=== PATIENT | female | born 1965 | race Two or more races ===

== ENCOUNTER 2018-03-12 15:09 | Observation (INO) | payer BC, OTHER ==
[2018-03-12] MEDS ORDERED: ACETAMINOPHEN 325 MG TABLET PO ONE (15:14)
[2018-03-12] MEDS ORDERED: CIPROFLOXACIN HCL 500 MG TABLET PO ONE (17:22)
[2018-03-12] MEDS ORDERED: OXYCODONE-ACETAMINOPHEN 5-325 MG TABLET PO ONE (17:22)
[2018-03-12] MEDS ORDERED: DIPH/PERTUSS(ACELL)/TETANUS VAC/PF 0.5 ML SYR (>=10YO) IM ONE (17:23)
--- NOTE | 2018-03-12 17:29 | ER Document Report ---
ED Extremity Problem, Lower - General Chief Complaint: Foot Pain Stated Complaint: FOOT PAIN Time Seen by Provider: 03/12/18 16:58 Mode of Arrival: Wheelchair Information source: Patient Notes: 52-year-old female presents to ED for complaint of a puncture wound to the right lateral aspect of the foot just below the fifth metatarsal. She [place] the [place] "[place] me". She said it bled a lot and it is been extremely painful since she got the injury. She states it is throbbing and scale of 5/5 her pain is a 12. TRAVEL OUTSIDE OF THE [place] IN LAST 30 DAYS: No - HPI Location: Foot - Right Occurred: This afternoon Where: Public place - [place] Onset/Duration: Sudden Quality of pain: Burning, Pressure, Throbbing Severity: Severe Pain Level: 5 Context: Barefoot Recent injury: Yes Associated symptoms: Painful ambulation Exacerbated by: Nothing Relieved by: Nothing - Related Data Allergies/Adverse Reactions: No Known Allergies Allergy (Verified 03/12/18 17:15) Past Medical History - General Information source: Patient - Social History Smoking Status: Never Smoker Cigarette use (# per day): No Chew tobacco use (# tins/day): No Smoking Education Provided: No Frequency of alcohol use: None Drug Abuse: None Lives with: Family Family History: Reviewed & Not Pertinent Patient has suicidal ideation: No Patient has homicidal ideation: No - Past Medical History Cardiac Medical History: Reports: None Pulmonary Medical History: Reports: None EENT Medical History: Reports: None Neurological Medical History: Reports: None Endocrine Medical History: Reports: Hx Diabetes Mellitus Type 2 Renal/ Medical History: Reports: None Malignancy Medical History: Reports: None GI Medical History: Reports: None Musculoskeletal Medical History: Reports None Skin Medical History: Reports None Psychiatric Medical History: Reports: None Traumatic Medical History: Reports: None Infectious Medical History: Reports: None Surgical Hx: Negative Past Surgical History: Reports: None - Immunizations Immunizations up to date: Yes Hx Diphtheria, Pertussis, Tetanus Vaccination: Yes - 03/12/2018 Review of Systems - Review of Systems Constitutional: No symptoms reported EENT: No symptoms reported Cardiovascular: No symptoms reported Respiratory: No symptoms reported Gastrointestinal: No symptoms reported Genitourinary: No symptoms reported Female Genitourinary: No symptoms reported Musculoskeletal: No symptoms reported Skin: Other - right puncture wound from probable sting ray with foreign body in wound Hematologic/Lymphatic: No symptoms reported Neurological/Psychological: No symptoms reported -: Yes All other systems reviewed and negative Physical Exam - Vital signs Vitals: Temp Pulse Resp BP Pulse Ox 97.6 F 101 H 20 146/61 H 100 03/12/18 15:16 03/12/18 15:16 03/12/18 15:16 03/12/18 15:16 03/12/18 15:16 Interpretation: Normal - General General appearance: Appears well, Alert - HEENT Head: Normocephalic, Atraumatic Eyes: Normal Pupils: PERRL - Respiratory Respiratory status: No respiratory distress Chest status: Nontender Breath sounds: Normal Chest palpation: Normal - Cardiovascular Rhythm: Regular Heart sounds: Normal auscultation Murmur: No - Abdominal Inspection: Normal Distension: No distension Bowel sounds: Normal Tenderness: Nontender Organomegaly: No organomegaly - Back Back: Normal, Nontender - Extremities General upper extremity: Normal inspection, Nontender, Normal color, Normal ROM , Normal temperature General lower extremity: Normal inspection, Nontender, Normal color, Normal ROM , Normal temperature, Normal weight bearing. No: Fanny's sign - Neurological Neuro grossly intact: Yes Cognition: Normal Orientation: AAOx4 Perry Coma Scale Eye Opening: Spontaneous Perry Coma Scale Verbal: Oriented Gilman Coma Scale Motor: Obeys Commands Perry Coma Scale Total: 15 Speech: Normal Motor strength normal: LUE, RUE, LLE, RLE Sensory: Normal - Psychological Associated symptoms: Normal affect, Normal mood - Skin Skin Temperature: Warm Skin Moisture: Dry Skin Color: Normal Location of irregularity: Extremities - right lateral foot puncture sting ray with foreign body on xray Irregularity with: Swelling, Tenderness Course - Re-evaluation Re-evalutation: 03/12/18 20:54 Discussed x-ray with Dr. Ty much earlier. He stated the patient would need to go to OR at the wound cleared out due to the multiple tiny radiopaque objects after being punctured with a stingray sherron. When patient came in she stated her pain was a 12/5. Her foot was promptly placed in hot water and patient was treated with Cipro Percocet and tetanus. Within 1 minute patient stated that the foot was feeling better within 10 minutes she stated the pain was then a [address] Ty has been by and seen the patient and requested that labs x-ray and chest x-ray be done as the surgery would be done early in the morning. - Vital Signs Vital signs: Temp Pulse Resp BP Pulse Ox 97.6 F 101 H 20 146/61 H 100 03/12/18 15:16 03/12/18 15:16 03/12/18 15:16 03/12/18 15:16 03/12/18 15:16 - Diagnostic Test Radiology reviewed: Image reviewed, Reports reviewed Discharge - Discharge Clinical Impression: [place] with [place] body Disposition: ADMITTED INPATIENT Admitting Provider: dr Ty Unit Admitted: Surgical Floor
--- NOTE | 2018-03-12 18:30 | RADIOLOGY REPORT (SQ) ---
EXAM DESCRIPTION: FOOT RIGHT COMPLETE COMPLETED DATE/TIME: 03/12/2018 6:06 pm REASON FOR STUDY: [place] (sting [place]) COMPARISON: None. NUMBER OF VIEWS: Three views. TECHNIQUE: AP, lateral and oblique radiographic images acquired of the right foot. LIMITATIONS: None. FINDINGS: MINERALIZATION: Normal. BONES: No acute fracture or dislocation. No worrisome bone lesions. JOINTS: No effusions. SOFT TISSUES: Lateral soft tissue swelling. Multiple tiny punctate radiopaque foreign bodies overlie the lateral soft tissues in the region of the base of the 5th metatarsal and cuboid. OTHER: No other significant finding. IMPRESSION: Multiple tiny punctate radiopaque foreign bodies overlie the lateral soft tissues in the region of the base of the 5th metatarsal and cuboid. TECHNICAL DOCUMENTATION: JOB ID: [id number] 2010 [employer]- All Rights Reserved Reading location - IP/workstation name: [email or web address]
[2018-03-12] MEDS ORDERED: GLUCAGON,HUMAN RECOMB 1 MG INJ SUBCUT PRN ×2 (21:15→21:28)
[2018-03-12] MEDS ORDERED: DEXTROSE 50%-WATER 25 GM/50 ML DISP.SYRIN IV PRN ×4 (21:15→21:28)
[2018-03-12] MEDS ORDERED: DEXTROSE 40% GEL 15 GM TUBE PO PRN ×4 (21:15→21:28)
[2018-03-12] MEDS ORDERED: ONDANSETRON HCL INJ/PF 4 MG/2 ML SDV IV PRN (21:17)
[2018-03-12] MEDS ORDERED: MORPHINE SULFATE 10 MG/ML INJ IV PRN (21:17)
[2018-03-12] MEDS ORDERED: HYDROCODONE/ACETAMINOPHEN 5-325 MG TABLET PO PRN (21:17)
--- NOTE | 2018-03-12 21:21 | PDOC H&P ---
History of Present Illness Admission Date/PCP: 03/12/18 19:22 Patient complains of: Right foot pain History of Present Illness: YARELI MONREAL is a 52 year old female who is visiting from out of town when she was walking in the ocean and felt a sharp stabbing pain in her right foot. Patient described the pain as a burning type discomfort that was radiating up her leg and she had the inability to weight-bear. She presents to emergency room where she was started on IV antibiotics and her foot placed in warm soaks. Radiographs are done demonstrating retained foreign body of the right foot patient states she did have numbness and tingling which is slowly improving. Current pain is 2/10. Past Medical History Cardiac Medical History: Reports: None Pulmonary Medical History: Reports: None EENT Medical History: Reports: None Neurological Medical History: Reports: None Endocrine Medical History: Reports: Diabetes Mellitus Type 2 Renal/ Medical History: Reports: None Malignancy Medical History: Reports: None GI Medical History: Reports: None Musculoskeltal Medical History: Reports: None Skin Medical History: Reports: None Psychiatric Medical History: Reports: None Traumatic Medical History: Reports: None Infectious Medical History: Reports: None Past Surgical History Past Surgical History: Reports: None Social History Lives with: Family Smoking Status: Never Smoker Family History Family History: Reviewed & Not Pertinent Parental Family History Reviewed: No Children Family History Reviewed: No Sibling(s) Family History Reviewed.: No Medication/Allergy Home Medications: Fosinopril Sodium [Monopril] 10 mg PO DAILY 03/12/18 Glipizide [Glipizide Xl] 10 mg PO Q12 03/12/18 Metformin HCl [Glucophage 500 mg Tablet] 1,000 mg PO QAM 03/12/18 Metformin HCl [Glucophage 500 mg Tablet] 1,500 mg PO QHS 03/12/18 Pioglitazone HCl [Actos] 45 mg PO DAILY 03/12/18 Sitagliptin Phosphate [Januvia] 100 mg PO DAILY 03/12/18 Allergies/Adverse Reactions: No Known Allergies Allergy (Verified 03/12/18 17:15) Review of Systems Constitutional: ABSENT: chills, fever(s), headache(s), weight gain, weight loss Eyes: ABSENT: visual disturbances Ears: ABSENT: hearing changes Cardiovascular: ABSENT: chest pain, dyspnea on exertion, edema, orthropnea, palpitations Respiratory: ABSENT: cough, hemoptysis Gastrointestinal: ABSENT: abdominal pain, constipation, diarrhea, hematemesis, hematochezia, nausea, vomiting Genitourinary: ABSENT: dysuria, hematuria Integumentary: ABSENT: rash, wounds Neurological: ABSENT: abnormal gait, abnormal speech, confusion, dizziness, focal weakness, syncope Psychiatric: ABSENT: anxiety, depression, homidical ideation, suicidal ideation Endocrine: ABSENT: cold intolerance, heat intolerance, menstrual abnormalities, polydipsia, polyuria Hematologic/Lymphatic: ABSENT: easy bleeding, easy bruising, lymphadenopathy Physical Exam Vital Signs: Temp Pulse Resp BP Pulse Ox 98.0 F 82 16 127/84 H 99 03/12/18 20:46 03/12/18 20:46 03/12/18 20:46 03/12/18 20:46 03/12/18 20:46 General appearance: PRESENT: no acute distress, well-developed, well-nourished Head exam: PRESENT: atraumatic, normocephalic Eye exam: PRESENT: conjunctiva pink, EOMI, PERRLA. ABSENT: scleral icterus Ear exam: PRESENT: normal external ear exam Mouth exam: PRESENT: moist, tongue midline Neck exam: PRESENT: full ROM. ABSENT: carotid bruit, JVD, lymphadenopathy, thyromegaly Cardiovascular exam: PRESENT: RRR. ABSENT: diastolic murmur, rubs, systolic murmur Pulses: PRESENT: normal dorsalis pedis pul, +2 pedal pulses bilateral Vascular exam: PRESENT: normal capillary refill GI/Abdominal exam: PRESENT: normal bowel sounds, soft. ABSENT: distended, guarding, mass, organolmegaly, rebound, tenderness Rectal exam: PRESENT: deferred Musculoskeletal exam: PRESENT: other - Right foot: Swelling and ecchymosis along the dorsum of the foot laterally with puncture wound noted. Tenderness to palpation along this region. Intact plantar flexion/dorsiflexion. Compartments soft and compressible no sign of compartment syndrome Neurological exam: PRESENT: alert, awake, oriented to person, oriented to place , oriented to time, oriented to situation, CN II-XII grossly intact. ABSENT: motor sensory deficit Psychiatric exam: PRESENT: appropriate affect, normal mood. ABSENT: homicidal ideation, suicidal ideation Skin exam: PRESENT: dry, intact, warm. ABSENT: cyanosis, rash Results Impressions: Foot X-Ray 03/12/18 17:22 IMPRESSION: Multiple tiny punctate radiopaque foreign bodies overlie the lateral soft tissues in the region of the base of the 5th metatarsal and cuboid. Status: Image reviewed by me - I have reviewed patient's radiographs which demonstrate foreign body fragmentation along the lateral aspect of the foot consistent with level of puncture wound. Assessment & Plan - Diagnosis (1) Foreign body in right foot Qualifiers: Encounter type: initial encounter Qualified Code(s): S90.851A - Superficial foreign body, right foot, initial encounter Is this a current diagnosis for this admission?: Yes Plan: Patient has evidence of a foreign body in her right foot given the mechanism of injury and concern for possible infection and the retained foreign bodies and the risk associated with stingray sherron which is likely the cause of patient's injury decision was made to proceed with operative treatment which includes irrigation and debridement right foot under LMAC. Risks and benefits have been explained to the patient risks including neurovascular risk, recurrent infection , postoperative pain, need for future surgical intervention. Patient has verbalized understanding consented for the procedure.
[2018-03-12] MEDS ORDERED: RINGERS SOLUTION,LACTATED 1,000 ML IV PRN (21:29)
--- NOTE | 2018-03-12 21:37 | RADIOLOGY REPORT (SQ) ---
EXAM DESCRIPTION: CHEST 2 VIEWS COMPLETED DATE/TIME: 03/12/2018 9:25 pm REASON FOR STUDY: surgery in am COMPARISON: None. EXAM PARAMETERS: NUMBER OF VIEWS: two views TECHNIQUE: Digital Frontal and Lateral radiographic views of the chest acquired. RADIATION DOSE: NA LIMITATIONS: none FINDINGS: LUNGS AND PLEURA: No consolidation, masses or pneumothorax. No pleural effusion. MEDIASTINUM AND HILAR STRUCTURES: Slightly prominent left atrial contour on the frontal view. HEART AND VASCULAR STRUCTURES: Heart upper limits of normal size. No evidence for failure. BONES: No acute findings. HARDWARE: None in the chest. OTHER: No other significant finding. IMPRESSION: NO ACUTE RADIOGRAPHIC FINDING IN THE CHEST. Slightly prominent left atrial contour on the frontal view. Overall Heart upper limits of normal maddie barr TECHNICAL DOCUMENTATION: JOB ID: [id number] [place]-72 2010 [employer]- All Rights Reserved Reading location - IP/workstation name: [email or web address]
[2018-03-12 21:45] LABS: ABSOLUTE EOSINOPHILS # (AUTO) 0.1 10^3/uL (0.0-0.6); ABSOLUTE LYMPHOCYTES (AUTO) 1.3 10^3/uL (0.5-4.7); ABSOLUTE MONOCYTES (AUTO) 0.7 10^3/uL (0.1-1.4); ABSOLUTE NEUT (AUTO) 7.3 10^3/uL (1.7-8.2); BASOPHILS % (AUTO) 0.3 % (0-2); HEMATOCRIT 43.5 % (36.0-47.0); HEMOGLOBIN 14.6 g/dL (12.0-15.5); LYMPHOCYTES % (AUTO) 13.7 % (13-45); MEAN CORPUSCULAR HEMOGLOBIN 29.6 pg (27.0-33.4); MEAN CORPUSCULAR HGB CONC 33.6 g/dL (32.0-36.0); MEAN CORPUSCULAR VOLUME 88 fl (80-97); MONOCYTES % (AUTO) 7.3 % (3-13); PLATELET COUNT 321 10^3/uL (150-450); RED BLOOD COUNT 4.93 10^6/uL (3.72-5.28); RED CELL DISTRIBUTION WIDTH 14.2 % (11.5-14.0); SEGMENTED NEUTROPHILS % (AUTO) 77.7 % (42-78); TOTAL CELLS COUNTED % (AUTO) 100 %; WHITE BLOOD COUNT 9.4 10^3/uL (4.0-10.5)
[2018-03-12 22:11] LABS: ALANINE AMINOTRANSFERASE 28 U/L (9-52); ALBUMIN 4.2 g/dL (3.5-5.0); ALKALINE PHOSPHATASE 89 U/L (38-126); ANION GAP 14 (5-19); ASPARTATE AMINO TRANSFERASE 20 U/L (14-36); BILIRUBIN,DIRECT 0.3 mg/dL (0.0-0.4); BILIRUBIN,TOTAL 0.4 mg/dL (0.2-1.3); BLOOD UREA NITROGEN 22 mg/dL (7-20); CALCIUM 9.4 mg/dL (8.4-10.2); CARBON DIOXIDE 24 mmol/L (22-30); CHLORIDE 105 mmol/L (98-107); GLUCOSE 183 mg/dL (75-110); POTASSIUM 4.2 mmol/L (3.6-5.0); SODIUM 142.5 mmol/L (137-145)
[2018-03-12 22:39] LABS: INTERNATIONAL RATION (INR) 0.94; PARTIAL THROMBOPLASTIN TIME 28.9 SEC (23.5-35.8)
--- NOTE | 2018-03-13 00:03 | EKG REPORT ---
SEVERITY:- NORMAL ECG - SINUS RHYTHM : Confirmed by: Ca Mahmood MD 13-Mar-2018 00:02:31
[2018-03-13] MEDS ORDERED: LIDOCAINE 1% INJ-PF (10 MG/ML) 30 ML SDV ONE (05:10)
[2018-03-13] MEDS ORDERED: CIPROFLOXACIN 200 MG/D5W RTU 200 MG/100 ML RTUPB IV SCH (06:00)
[2018-03-13] MEDS ORDERED: LIDOCAINE 2% INJ-PF (20 MG/ML) 10 ML AMPUL ONE (06:57)
[2018-03-13] MEDS ORDERED: FENTANYL CITRATE INJ/PF 100 MCG/2 ML AMPUL ONE (06:57)
[2018-03-13] MEDS ORDERED: MIDAZOLAM 2 MG/2 ML INJ ONE (06:57)
[2018-03-13] MEDS ORDERED: PROPOFOL INJ 200 MG/20 ML VIAL IV ONE (06:57)
[2018-03-13] MEDS ORDERED: ACETAMINOPHEN 1,000 MG/100 ML RTUPB IV ONE (06:57)
[2018-03-13] MEDS ORDERED: ONDANSETRON HCL INJ/PF 4 MG/2 ML SDV IV PRN ×2 (07:23→08:19)
[2018-03-13] MEDS ORDERED: FENTANYL CITRATE INJ/PF 100 MCG/2 ML AMPUL IV PRN ×6 (07:23→08:19)
[2018-03-13] MEDS ORDERED: DIPHENHYDRAMINE HCL 50 MG/ML VIAL IV PRN ×2 (07:23→08:19)
[2018-03-13] MEDS ORDERED: PROMETHAZINE HCL INJ 25 MG/1 ML VIAL IV PRN ×4 (07:23→08:19)
[2018-03-13] MEDS ORDERED: MEPERIDINE HCL/PF INJ 25 MG/1 ML DISP.SYRIN IV PRN ×2 (07:23→08:19)
--- NOTE | 2018-03-13 07:38 | Operative Report ---
Operative Report DATE OF SURGERY: 03/13/18 PREOPERATIVE DIAGNOSIS: Retained foreign body right foot POSTOPERATIVE DIAGNOSIS: Same OPERATION: Irrigation debridement right foot deep soft tissue, fascia and muscle SURGEON: WOODROW JOE ANESTHESIA: LMAC COMPLICATIONS: None ESTIMATED BLOOD LOSS: Minimal PROCEDURE: Indication for above procedure: 52-year-old female who is visiting out of town when she was in the water and felt a sharp stabbing pain in her foot. She was seen at the emergency room where x-rays demonstrated a small retained foreign bodies. Given the location and likelihood of retained foreign body decision was made to proceed with operative treatment. Procedure In Detail: Patient was seen and evaluated in the preoperative holding area. The RIGHT lower extremity was initialized and marked. Patient receiving Cipro scheduled.. Patient was taken back to the operative room where transferred to the operative table and placed under general anesthesia. Once they were adequately anesthetized a surgical team debriefing was performed ensuring all instrumentation was available, the surgical procedure was discussed with possible concerns reviewed. The upper extremity was prepped with Betadine and draped in a sterile fashion. A timeout was done identifying correct patient, procedure and extremity everyone in attendance agree with this and verbalized no concerns. Local block was performed with 1% lidocaine without epinephrine and Esmarch was utilized as a tourniquet. 3 cm skin incision was made along the puncture wound. Blunt dissection was performed. There was disruption of the superficial vein which was isolated and coagulated with bipolar cautery. The wounds involve the underlying fascia and muscle along the lateral aspect of the foot via digital palpation the underlying cuboid bone was identified there is no breach of the periosteum or joint. There was small particulate foreign body superficially but no large deep foreign body. C-arm fluoroscopy was obtained to confirm no retained foreign bodies in the region. The wound was then copiously irrigated with normal saline. Tourniquet was deflated. Any peripheral bleeding was controlled with bipolar cautery into the wound was dry. Wound was closed with 4 simple nylon sutures. Wound was dressed with Xeroform 4 x 4's and a soft dressing. Sponge counts, instrument counts, needle counts counts were correct. Patient was then awoken from anesthesia. Transferred from the operating room table to the operating room stretcher. There was no intraoperative complications patient tolerated procedure well stable to PACU. Postoperative plan: Patient will be discharged to home today. Will continue on Cipro and is to follow-up with a local orthopedist in 7-10 days.
[2018-03-13 10:31] VITALS: BP 105/44
--- NOTE | 2018-03-13 10:47 | PDOC DISCHARGE SUMMARY ---
General - Admit/Disc Date/PCP Admission Date/Primary Care Provider: 03/12/18 19:22 Discharge Date: 03/13/18 - Discharge Diagnosis (1) Foreign body in right foot Is this a current diagnosis for this admission?: Yes - Additional Information Resuscitation Status: Full Code Discharge Diet: As Tolerated Discharge Activity: Balance Activity w/Rest, Keep Legs Elevated, No Lifting Over 10 Pounds, No Lifting/Push/Pulling Prescriptions: Ciprofloxacin HCl [Cipro 500 mg Tablet] 500 mg PO BID #20 tablet Hydrocodone/Acetaminophen [[place] 5-325 mg Tablet] 1 tab PO Q6 PRN #25 tablet PRN Reason: Home Medications: Fosinopril Sodium [Monopril] 10 mg PO DAILY 03/12/18 Glipizide [Glipizide Xl] 10 mg PO Q12 03/12/18 Metformin HCl [Glucophage 500 mg Tablet] 1,000 mg PO QAM 03/12/18 Metformin HCl [Glucophage 500 mg Tablet] 1,500 mg PO QHS 03/12/18 Pioglitazone HCl [Actos] 45 mg PO DAILY 03/12/18 Sitagliptin Phosphate [Januvia] 100 mg PO DAILY 03/12/18 Ciprofloxacin HCl [Cipro 500 mg Tablet] 500 mg PO BID #20 tablet 03/13/18 Hydrocodone/Acetaminophen [[place] 5-325 mg Tablet] 1 tab PO Q6 PRN #25 tablet 06/20 History of Present Illness History of Present Illness: YARELI MONREAL is a 52 year old female who is visiting from out of town when she was walking in the ocean and felt a sharp stabbing pain in her right foot. Patient described the pain as a burning type discomfort that was radiating up her leg and she had the inability to weight-bear. She presents to emergency room where she was started on IV antibiotics and her foot placed in warm soaks. Radiographs are done demonstrating retained foreign body of the right foot patient states she did have numbness and tingling which is slowly improving. Current pain is 2/10. Hospital Course Hospital Course: Patient underwent successful irrigation and debridement of the right foot with removal of foreign bodies. Postoperative patient states she had been doing well. Her pain has been controlled. There is no definitive sign or symptom of infection at this point patient is stable for discharge to home. Patient was stable on 03/13/18 for discharge to home. Physical Exam Vital Signs: Temp Pulse Resp BP Pulse Ox 97.4 F 80 18 105/44 L 100 03/13/18 09:54 03/13/18 09:54 03/13/18 09:54 03/13/18 09:54 03/13/18 09:54 Intake & Output 03/12/18 03/13/18 03/14/18 06:59 06:59 06:59 Intake Total 0 1050 Output Total 5 Balance 0 1045 Weight 96.6 kg General appearance: PRESENT: no acute distress, well-developed, well-nourished Head exam: PRESENT: atraumatic, normocephalic Eye exam: PRESENT: conjunctiva pink, EOMI, PERRLA. ABSENT: scleral icterus Ear exam: PRESENT: normal external ear exam Mouth exam: PRESENT: moist, tongue midline Neck exam: PRESENT: full ROM. ABSENT: carotid bruit, JVD, lymphadenopathy, thyromegaly Cardiovascular exam: PRESENT: RRR. ABSENT: diastolic murmur, rubs, systolic murmur Pulses: PRESENT: normal dorsalis pedis pul, +2 pedal pulses bilateral Vascular exam: PRESENT: normal capillary refill GI/Abdominal exam: PRESENT: normal bowel sounds, soft. ABSENT: distended, guarding, mass, organolmegaly, rebound, tenderness Rectal exam: PRESENT: deferred Musculoskeletal exam: PRESENT: other - Right foot: Dressing clean/dry/intact no erythema or drainage. Intact flexion extension of the toes. Cap refill less than 2 seconds Neurological exam: PRESENT: alert, awake, oriented to person, oriented to place , oriented to time, oriented to situation, CN II-XII grossly intact. ABSENT: motor sensory deficit Psychiatric exam: PRESENT: appropriate affect, normal mood. ABSENT: homicidal ideation, suicidal ideation Skin exam: PRESENT: dry, intact, warm. ABSENT: cyanosis, rash Results Laboratory Results: 03/12/18 21:00 03/12/18 21:00 03/12/18 03/12/18 21:00 21:00 WBC 9.4 RBC 4.93 Hgb 14.6 Hct 43.5 MCV 88 MCH 29.6 MCHC 33.6 RDW 14.2 H Plt Count 321 Seg Neutrophils % 77.7 Lymphocytes % 13.7 Monocytes % 7.3 Eosinophils % 1.0 Basophils % 0.3 Absolute Neutrophils 7.3 Absolute Lymphocytes 1.3 Absolute Monocytes 0.7 Absolute Eosinophils 0.1 Absolute Basophils 0.0 Sodium 142.5 Potassium 4.2 Chloride 105 Carbon Dioxide 24 Anion Gap 14 BUN 22 H Creatinine 0.48 L Est GFR ( Amer) > 60 Est GFR (Non-Af Amer) > 60 Glucose 183 H Calcium 9.4 Total Bilirubin 0.4 AST 20 ALT 28 Alkaline Phosphatase 89 Total Protein 7.0 Albumin 4.2 Impressions: Chest X-Ray 03/12/18 20:49 IMPRESSION: NO ACUTE RADIOGRAPHIC FINDING IN THE CHEST. Slightly prominent left atrial contour on the frontal view. Overall Heart upper limits of normal size. Qualifiers - * PATIENT BEING DISCHARGED WITH ANY OF THE FOLLOWING DIAGNOSIS: No Plan Discharge Plan: Patient doing well. She will follow-up with her local orthopedist in 7-10 days for suture removal. Will continue Cipro and hydrocodone as needed for pain. Patient may be weightbearing as tolerated. Patient is to call our office he has questions concerns or increasing swelling, pain or temperature greater than 101.5. Patient orthopedically stable discharge 03/13/18
--- NOTE | 2018-03-13 12:29 | RADIOLOGY REPORT (SQ) ---
EXAM DESCRIPTION: FOOT RIGHT 2 VIEWS; NO CHG FLUORO COMPLETED DATE/TIME: 03/13/2018 9:37 am REASON FOR STUDY: RIGHT FOOT FOREIGN BODY IN OR COMPARISON: None. FLUOROSCOPY TIME: 4 seconds 4 images saved to PACS. TECHNIQUE: Intra-operative images acquired during surgical procedure to evaluate progress. NUMBER OF IMAGES: 4 LIMITATIONS: None. FINDINGS: Selected images of the right ankle obtained in the operating room. IMPRESSION: IMAGE(S) OBTAINED DURING PROCEDURE. COMMENT: Quality ID [id number]: Final reports for procedures using fluoroscopy that document radiation exp osure indices, or exposure time and number of fluorographic images (if radiation exposure indices are not available) Please consult full operative report of the attending physician for description of the procedure. TECHNICAL DOCUMENTATION: JOB ID: [id number] [email or web address]- All Rights Reserved Reading location - IP/workstation name: [email or web address]
--- NOTE | 2018-03-13 12:29 | RADIOLOGY REPORT (SQ) ---
EXAM DESCRIPTION: FOOT RIGHT 2 VIEWS; NO CHG FLUORO COMPLETED DATE/TIME: 03/13/2018 9:37 am REASON FOR STUDY: RIGHT FOOT FOREIGN BODY IN OR COMPARISON: None. FLUOROSCOPY TIME: 4 seconds 4 images saved to PACS. TECHNIQUE: Intra-operative images acquired during surgical procedure to evaluate progress. NUMBER OF IMAGES: 4 LIMITATIONS: None. FINDINGS: Selected images of the right ankle obtained in the operating room. IMPRESSION: IMAGE(S) OBTAINED DURING PROCEDURE. COMMENT: Quality ID [id number]: Final reports for procedures using fluoroscopy that document radiation exp osure indices, or exposure time and number of fluorographic images (if radiation exposure indices are not available) Please consult full operative report of the attending physician for description of the procedure. TECHNICAL DOCUMENTATION: JOB ID: [id number] [employer]- All Rights Reserved Reading location - IP/workstation name: [email or web address]
== END 2018-03-13 12:15 | disposition home or self-care (01) ==
LOC: ER 15:09 → EH 19:22 → INTOOBSV 19:22 → 2N 21:40
PROVIDERS: ADMIT Orthopaedic Surgery; ATTEND Orthopaedic Surgery
PROC: 3E0234Z Introduction of Serum, Toxoid and Vaccine into Muscle, Percutaneous Approach (ICD-10-PCS; 2018-03-12)
PROC: 0KCV0ZZ Extirpation of Matter from Right Foot Muscle, Open Approach (ICD-10-PCS; principal; 2018-03-13 07:15)
DX: S91.341A Puncture wound with foreign body, right foot, initial encounter (principal); W45.8XXA Other foreign body or object entering through skin, initial encounter; Y92.832 Beach as the place of occurrence of the external cause; R20.0 Anesthesia of skin; R20.2 Paresthesia of skin; E11.9 Type 2 diabetes mellitus without complications; Z79.84 Long term (current) use of oral hypoglycemic drugs; Z79.899 Other long term (current) drug therapy
CPT/HCPCS: 93005; 99285; 90471; 36415; 85025; 85610; 85730; 80053; 71046; 73630; 73620; 90715; 93010; 20103; J2250; J3010; J3490 ×2; J7120; J2704; J0131; J0744; 00400; G0378